=== PATIENT | male | born 1970 | race African-American/Black ===

== ENCOUNTER 2016-11-24 08:11 | Emergency (ER) | payer MEDICAID, OTHER ==
[~2016-11-24] VITALS: Ht 177.8 cm; Wt 90.0 kg
[2016-11-24] MEDS ORDERED: ACETAMINOPHEN 500MG TABLET PO ONE (09:30)
[2016-11-24] MEDS ORDERED: TETRACAINE 0.5% OPHTH DROPS 4ML RIGHTEYE ONE ×2 (09:30→11:45)
[2016-11-24] MEDS ORDERED: FLUORESCEIN SODIUM 1MG/STRIP BOTHEYE ONE (12:30)
[2016-11-24] MEDS ORDERED: IBUPROFEN 600MG TABLET PO ONE (13:15)
[2016-11-24 13:22] VITALS: BP 142/85
== END 2016-11-24 13:57 | disposition home or self-care (01) ==
LOC: ER 08:23
DX: H11.31 Conjunctival hemorrhage, right eye (principal); J45.909 Unspecified asthma, uncomplicated
CPT/HCPCS: 99283

== ENCOUNTER 2018-08-31 19:05 | Inpatient (IN) | payer MEDICAID ==
[~2018-08-31] VITALS: Ht 167.6 cm; Wt 60.3 kg
[2018-08-31] MEDS ORDERED: SODIUM CHLORIDE 0.9% 1,000 ML IV ONE (21:51)
[2018-08-31] MEDS ORDERED: KETOROLAC 30MG/ML VIAL IV STA (21:51)
[2018-08-31 23:19] LABS: HEMATOCRIT. 44.1 % (42.0-52.0); HEMOGLOBIN. 14.9 g/dL (14.0-18.0); MEAN CORPUSCULAR HEMOGLOBIN 28.4 pg (28.0-32.0); MEAN CORPUSCULAR VOLUME 84.2 fL (80.0-94.0); MEAN PLATELET VOLUME 8.7 fl (7.4-10.4); PLATELET 181 x1000/uL (130-400); RED BLOOD CELL COUNT 5.24 mill/uL (4.7-6.1); RED CELL DISTRIBUTION WIDTH 14.3 % (11.6-14.6)
[2018-08-31 23:24] LABS: CHLORIDE 92 mEq/L (98-107)
[2018-08-31] MEDS ORDERED: POTASSIUM CHLORIDE 20MEQ TABLET SR PO ONE ×2 (23:30)
[2018-09-01] MEDS ORDERED: SODIUM CHLORIDE 0.9% 1000ML BAG (SEPSIS BOLUS) IV ONE
[2018-09-01] MEDS ORDERED: PIPERACILLIN/TAZ 3.375G PREMIX 50 ML IV ONE
[2018-09-01] MEDS ORDERED: IOHEXOL-300 100 ML BOTTLE ONE (00:27)
[2018-09-01 01:31] LABS: PLATELET ESTIMATE NORMAL
[2018-09-01 02:48] LABS: CLARITY URINE CLEAR (CLEAR); COLOR URINE YELLOW (YELLOW); KETONES URINE NEGATIVE (NEGATIVE); LEUKOCYTE ESTERASE URINE NEGATIVE (NEGATIVE); NITRITE URINE NEGATIVE (NEGATIVE); OCCULT BLOOD URINE TRACE (NEGATIVE); PROTEIN URINE NEGATIVE (NEGATIVE); SPECIFIC GRAVITY URINE 1.036 (1.005-1.030); UROBILINOGEN URINE 0.2 E.U./dL (0.2-1.0)
[2018-09-01 09:30] VITALS: BP 124/79
[2018-09-01] MEDS ORDERED: ACETAMINOPHEN 325MG TABLET PO PRN (09:45)
[2018-09-01] MEDS ORDERED: ONDANSETRON HCL 4MG/2ML INJ IV PRN (09:45)
[2018-09-01] MEDS ORDERED: MORPHINE SULFATE 2 MG/ML CPJ (NOT FOR IM USE) IV PRN (09:45)
[2018-09-01 12:05] VITALS: BP 117/78
[2018-09-01] MEDS: LEVOFLOXACIN 500MG TABLET PO SCH (14:31)
[2018-09-01 15:05] LABS: *AMPHETAMINES SCREEN URINE PRESUMTIVE POSITIVE (NEGATIVE); *BARBITURATES SCREEN URINE NEGATIVE (NEGATIVE); *BENZODIAZEPINES SCREEN URINE NEGATIVE (NEGATIVE); *COCAINE SCREEN URINE PRESUMTIVE POSITIVE (NEGATIVE); METHADONE URINE SCREEN NEGATIVE (NEGATIVE); OPIATES URINE SCREEN NEGATIVE (NEGATIVE)
[2018-09-01 15:06] LABS: PHENCYCLIDINE URINE SCREEN NEGATIVE (NEGATIVE)
[2018-09-01 15:08] LABS: CANNABINOID URINE SCREEN NEGATIVE (NEGATIVE)
[2018-09-01 15:43] VITALS: BP 131/79
[2018-09-01 20:00] VITALS: BP 102/67
[2018-09-01] MEDS: METRONIDAZOLE 500MG TABLET PO SCH (22:20)
[2018-09-02] VITALS: BP 108/77
[2018-09-02 06:02] LABS: CHLORIDE 105 mEq/L (98-107)
[2018-09-02 06:05] LABS: HEMATOCRIT. 40.3 % (42.0-52.0); HEMOGLOBIN. 13.7 g/dL (14.0-18.0); MEAN CORPUSCULAR HEMOGLOBIN 28.7 pg (28.0-32.0); MEAN CORPUSCULAR VOLUME 84.4 fL (80.0-94.0); MEAN PLATELET VOLUME 9.1 fl (7.4-10.4); PLATELET 204 x1000/uL (130-400); RED BLOOD CELL COUNT 4.78 mill/uL (4.7-6.1)
[2018-09-02 08:21] VITALS: BP 101/66
[2018-09-02] MEDS: METRONIDAZOLE 500MG TABLET PO SCH (09:07)
[2018-09-02 09:48] LABS: PLATELET ESTIMATE NORMAL
[2018-09-02] MEDS: LEVOFLOXACIN 500MG TABLET PO SCH (10:03)
[2018-09-02] MEDS ORDERED: POTASSIUM CHLORIDE 20MEQ TABLET SR PO NR (11:45)
[2018-09-02 12:00] VITALS: BP 106/74
[2018-09-02 14:26] VITALS: BP 106/74
[2018-09-02] MEDS ORDERED: PREDNISONE 20MG TABLET PO NR (15:30)
[2018-09-04 13:12] LABS: SACCHAROMYCES CEREVISIAE IGG 34.3 Units (0.0-24.9); SACCHAROMYCES CEREVISIAE IGM 34.8 Units (0.0-24.9)
[2018-09-04 15:14] LABS: ATYPICAL pANCA <1:20 titer (Neg:<1:20)
== END 2018-09-02 16:30 | disposition home or self-care (01) | DRG 245 ==
LOC: ER 19:05 → 8WST 09-01 00:05 → ENRESERV 09-01 07:01
PROVIDERS: ADMIT Internal Medicine; ATTEND Internal Medicine
DX: K51.90 Ulcerative colitis, unspecified, without complications (principal); E44.0 Moderate protein-calorie malnutrition; E87.8 Other disorders of electrolyte and fluid balance, not elsewhere classified; E87.6 Hypokalemia; F14.10 Cocaine abuse, uncomplicated; F17.210 Nicotine dependence, cigarettes, uncomplicated; J45.909 Unspecified asthma, uncomplicated; E87.1 Hypo-osmolality and hyponatremia; Z96.641 Presence of right artificial hip joint; F15.10 Other stimulant abuse, uncomplicated
CPT/HCPCS: 36415; 74177; 80048; 80305; 81003; 83605; 86256; 86671; 87177; 87209; 93970; 96374; 99291; J1885; J2270; J2543; J7030; Q9967

== ENCOUNTER 2018-09-30 20:43 | Emergency (ER) | payer MEDICAID ==
[~2018-09-30] VITALS: Ht 167.6 cm; Wt 80.0 kg
[2018-09-30] MEDS ORDERED: AZITHROMYCIN 500 MG TABLET PO ONE (23:15)
[2018-09-30] MEDS ORDERED: CEFTRIAXONE SODIUM 250 MG/VIAL IM ONE (23:15)
[2018-10-01 00:34] LABS: CLARITY URINE CLEAR (CLEAR); COLOR URINE YELLOW (YELLOW); KETONES URINE TRACE (NEGATIVE); LEUKOCYTE ESTERASE URINE NEGATIVE (NEGATIVE); NITRITE URINE NEGATIVE (NEGATIVE); OCCULT BLOOD URINE NEGATIVE (NEGATIVE); PH URINE 6.5 (4.5-8.0); PROTEIN URINE NEGATIVE (NEGATIVE); SPECIFIC GRAVITY URINE 1.025 (1.005-1.030)
[2018-10-01 01:23] VITALS: BP 145/80
[2018-10-03 04:12] LABS: CHLAMYDIA TRACHOMATIS NAA Negative (Negative); NEISSERIA GONORRHOEAE NAA Negative (Negative)
== END 2018-10-01 01:20 | disposition home or self-care (01) ==
LOC: ER 20:43
DX: R30.0 Dysuria (principal); F14.10 Cocaine abuse, uncomplicated; F11.10 Opioid abuse, uncomplicated; F15.10 Other stimulant abuse, uncomplicated; F17.200 Nicotine dependence, unspecified, uncomplicated; Z11.3 Encounter for screening for infections with a predominantly sexual mode of transmission; Z87.19 Personal history of other diseases of the digestive system
CPT/HCPCS: 81003; 87491; 87591; 96372; 99283; J0696